=== PATIENT | male | born 1950 | race Caucasian/White ===

== ENCOUNTER 2017-02-09 05:12 | Inpatient (IN) | payer OTHER ==
[2017-02-09] VITALS (13 sets, daily range): BP systolic 117–157; BP diastolic 56–92; PULSE 83–108; RESP 13–30; TEMP 95.8–98.5; O2SAT 91–95
[~2017-02-09] VITALS: Ht 180.3 cm; Wt 52.0 kg
[~2017-02-09 05:12] MED LIST: PERC5TAB12 PO
[2017-02-09] MEDS ORDERED: SODIUM CHLORIDE 0.9% FLUSH 10 ML FLUSH IVF PRN ×2 (05:15→08:30)
[2017-02-09] MEDS ORDERED: methylPREDNISolone SOD SUCC 125 MG/2 ML VIAL IVP ONE (05:15)
--- NOTE | 2017-02-09 05:18 | PD ---
HPI Chief Complaint: Respiratory Distress Time Seen by Provider: 05:14 Travel History International Travel<30 days: No Contact w/Intl Traveler<30days: No Traveled to known affect area: No History of Present Illness HPI 66-year-old male presents to the emergency department by private transportation for complaint of 3 weeks of progressive worsening shortness of breath. Patient reports earlier in the week he was seen in urgent care and diagnosed with bronchitis and started on amoxicillin. Patient has had prior history of pneumonia 3 years ago. Patient denies known history of COPD or emphysema. Patient denies personal history of hypertension dyslipidemia CAD or CHF. Patient states shortness of breath has gotten markedly worse and now must sit upright to breathe and is concerned he may have broken ribs from forceful coughing over the past several days. No report of phlegm production or hemoptysis. No lower leg pain or swelling. Patient has also traveled several times between [place] and [place] in the past several months. Positive tobacco use. Positive productive cough of yellow sputum. 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) Social History Alcohol Use: Yes (3-4 week) Tobacco Use: Yes (ppd) Substance Use: No Allergies-Medications (Allergen,Severity, Reaction): Coded Allergies: No Known Allergies (Unverified , 02/09/17) Reported Meds & Prescriptions Reported Meds & Active Scripts Active No Active Prescriptions or Reported Medications Review of Systems Except as stated in HPI: all other systems reviewed are Neg General / Constitutional: Positive: Chills HENT: No: Congestion Cardiovascular: Positive: Chest Pain or Discomfort Respiratory: Positive: Cough, Shortness of Breath, Wheezing Gastrointestinal: No: Abdominal Pain Genitourinary: No: Flank Pain Musculoskeletal: No: Myalgias, Arthralgias Skin: No Rash Neurologic: Positive: Weakness, No: Dizziness, Syncope Psychiatric: No: Anxiety Hematologic/Lymphatic: No: Easy Bruising Physical Exam Narrative GENERAL: Well-developed well-nourished male in obvious respiratory distress SKIN: Warm and dry. HEAD: Normocephalic. EYES: No scleral icterus. No injection or drainage. NECK: Supple, trachea midline. No JVD or lymphadenopathy. CARDIOVASCULAR: Regular rate and rhythm without murmurs, gallops, or rubs. RESPIRATORY: Breath sounds equal bilaterally with bilateral expiratory wheezes. No accessory muscle use. GASTROINTESTINAL: Abdomen soft, non-tender, nondistended. MUSCULOSKELETAL: No cyanosis, or edema. Radial and dorsalis pedis pulses 2+ to palpation BACK: Nontender without obvious deformity. No CVA tenderness. Data Data Last Documented VS Vital Signs Date Time Temp Pulse Resp B/P Pulse Ox O2 Delivery O2 Flow Rate FiO2 02/09/17 07:35 92 18 135/66 94 Nasal Cannula 2 02/09/17 05:14 98.5 Orders Complete Blood Count With Diff (02/09/17 05:14) Basic Metabolic Panel (Bmp) (02/09/17 05:14) B-Type Natriuretic Peptide (02/09/17 05:14) Magnesium (Mg) (02/09/17 05:14) Ckmb (Isoenzyme) Profile (02/09/17 05:14) Troponin I (02/09/17 05:14) Iv Access Insert/Monitor (02/09/17 05:14) Electrocardiogram (02/09/17 05:14) Ecg Monitoring (02/09/17 05:14) Oximetry (02/09/17 05:14) Oxygen Administration (02/09/17 05:14) Chest, Single Ap (02/09/17 05:14) Sodium Chloride 0.9% Flush (Ns Flush) (02/09/17 05:15) Methylprednisolone So Succ Inj (Solumedr (02/09/17 05:15) Albuterol-Ipratropium Neb (Duoneb Neb) (02/09/17 05:15) Lactic Acid (02/09/17 05:15) Blood Culture (02/09/17 05:15) Act Partial Throm Time (Ptt) (02/09/17 05:28) Prothrombin Time / Inr (Pt) (02/09/17 05:28) D-Dimer (02/09/17 05:28) Ceftriaxone Inj (Rocephin Inj) (02/09/17 05:30) Azithromycin Inj (Zithromax Inj) (02/09/17 06:00) Albuterol-Ipratropium Neb (Duoneb Neb) (02/09/17 06:00) Sputum Culture And Gram Stain (02/09/17 05:48) Arterial Blood Gas (Abg) (02/09/17 ) Ct Pulmonary Angiogram (02/09/17 ) CKMB (02/09/17 05:17) CKMB% (02/09/17 05:17) Ct Brain W/O Iv Contrast(Rout) (02/09/17 ) Iohexol 350 Inj (Omnipaque 350 Inj) (02/09/17 07:09) Admit Order (Ed Use Only) (02/09/17 ) ^ Saline Lock (02/09/17 08:22) Resp Oxygen Anton C Titrat 1-4 L (02/09/17 ) Notify Dr: Other (02/09/17 08:22) Labs Laboratory Tests Test 02/09/17 02/09/17 05:17 06:04 White Blood Count 16.4 TH/MM3 Red Blood Count 4.94 MIL/MM3 Hemoglobin 15.9 GM/DL Hematocrit 46.2 % Mean Corpuscular Volume 93.6 FL Mean Corpuscular Hemoglobin 32.2 PG Mean Corpuscular Hemoglobin 34.4 % Concent Red Cell Distribution Width 13.5 % Platelet Count 249 TH/MM3 Mean Platelet Volume 7.5 FL Neutrophils (%) (Auto) 64.5 % Lymphocytes (%) (Auto) 18.4 % Monocytes (%) (Auto) 5.7 % Eosinophils (%) (Auto) 10.8 % Basophils (%) (Auto) 0.6 % Neutrophils # (Auto) 10.6 TH/MM3 Lymphocytes # (Auto) 3.0 TH/MM3 Monocytes # (Auto) 0.9 TH/MM3 Eosinophils # (Auto) 1.8 TH/MM3 Basophils # (Auto) 0.1 TH/MM3 CBC Comment DIFF FINAL Differential Comment Prothrombin Time 10.5 SEC Prothromb Time International 1.0 RATIO Ratio Activated Partial 25.9 SEC Thromboplast Time D-Dimer Quantitative (PE/DVT) 1.22 MG/L FEU Sodium Level 138 MEQ/L Potassium Level 4.4 MEQ/L Chloride Level 105 MEQ/L Carbon Dioxide Level 26.7 MEQ/L Anion Gap 6 MEQ/L Blood Urea Nitrogen 18 MG/DL Creatinine 1.15 MG/DL Estimat Glomerular Filtration 64 ML/MIN Rate Random Glucose 99 MG/DL Hemoglobin A1c 5.9 % Lactic Acid Level 1.6 mmol/L Calcium Level 8.8 MG/DL Magnesium Level 2.2 MG/DL Total Creatine Kinase 147 U/L Creatine Kinase MB 1.8 NG/ML Troponin I LESS THAN 0.02 NG/ML B-Type Natriuretic Peptide 22 PG/ML Triglycerides Level 117 MG/DL Cholesterol Level 180 MG/DL LDL Cholesterol 117 MG/DL HDL Cholesterol 40.0 MG/DL Cholesterol/HDL Ratio 4.50 RATIO Thyroid Stimulating Hormone 1.980 uIU/ML 3rd Gen Blood Gas Puncture Site LT RADIAL Blood Gas Patient Temperature 98.6 Blood Gas HCO3 24 mmol/L Blood Gas Base Excess -0.2 mmol/L Blood Gas Oxygen Saturation 91 % Arterial Blood pH 7.41 Arterial Blood Partial 39 mmHg Pressure CO2 Arterial Blood Partial 65 mmHG Pressure O2 Arterial Blood Oxygen Content 19.4 Vol % Arterial Blood 1.7 % Carboxyhemoglobin Arterial Blood Methemoglobin 0.6 % Blood Gas Hemoglobin 15.2 G/DL Oxygen Delivery Device NASAL CANNULA Blood Gas Liter Flow 3 L/M MDM Medical Decision Making Medical Screen Exam Complete: Yes Emergency Medical Condition: Yes Medical Record Reviewed: Yes Interpretation(s) EKG normal sinus rhythm rate 94 rare unifocal PVCs no acute ST elevation or injury pattern cxr: LLL infiltrate Last Impressions Chest X-Ray 02/09/17 0514 Signed Impressions: Service Date/Time: Thursday, February 09, 2017 05:12 - CONCLUSION: No acute disease. Daren Guerra MD Head CT 02/09/17 0000 Signed Impressions: Service Date/Time: Thursday, February 09, 2017 07:01 - CONCLUSION: Unremarkable study. Grace Doe MD CT Angiography 02/09/17 0000 Signed Impressions: Service Date/Time: Thursday, February 09, 2017 07:06 - CONCLUSION: Probable mucous plugging in the left main bronchus, follow up is suggested with noncontrast chest CT in 6-8 weeks and if this density persists may consider bronchoscopy. Grace Doe MD CBC & BMP Diagram 02/09/17 05:17 LA: 1.6, not elevated Differential Diagnosis Dyspnea, bronchitis, pneumonia, CHF, PE, ACS, sepsis Narrative Course Patient placed on gas line installer IV access obtained respiratory therapy contacted to administered DuoNeb updrafts 3 and Solu-Medrol 125 mg administered ; lactic acid and blood cultures obtained patient is already taking amoxicillin with worsening symptoms. At 6:14 AM patient continues to have expiratory wheezing to auscultation although somewhat improved identifies now that he actually had a syncopal episode 2 weeks ago due to shortness of breath and aggressive coughing. As well as ordering a CTA pulmonary angiogram due to elevated d-dimer recent long distance travel shortness of breath and room air O2 saturation of 90% will add CT brain noncontrast for evaluation of head injury status post syncope within the past 2 weeks. At [address] bony angiogram reveals no PE does show evidence of previous plugging of left mainstem bronchus with recommendation for follow-up CT; chest x-ray shows no obvious lobar infiltrate per reading radiologist; patient meets sepsis protocol per heart rate leukocytosis respiratory rate and sore throat infection pulmonary therefore will admit for sepsis infectious bronchitis and COPD exacerbation; call placed to have his service Critical Care Narrative Aggregate critical care time was 35 minutes. Time to perform other separately billable procedures was not included in the critical care time. My time did not include minutes spent treating any other patients simultaneously or on activities that did not directly contribute to the patient's treatment. The services I provided to this patient were to treat and/or prevent clinically significant deterioration that could result in: Respiratory failure, septic shock, I provided critical care services requiring my management, as noted below: Chart data review, documentation time, medication orders and management, vital sign assessments/reviewing monitor data, ordering and reviewing lab tests, ordering and interpreting/reviewing x-rays and diagnostic studies, care of the patient and discussion of the patient with the admitting physicians. Sepsis Criteria SIRS Criteria (2 or more): Heart rate over 90, RR > 20 or PaCO2 < 32, WBC > 14318, < 4000 or > 10% bands Sepsis Criteria (SIRS+source): Infect source susp/known (lung) Physician Communication Physician Communication call placed to [facility] service ---accepted by Dr Taylor Diagnosis Primary Impression: Sepsis Qualified Code: A41.9 - Sepsis, due to unspecified organism Additional Impressions: Bronchitis COPD exacerbation Admitting Information Admitting Physician Requests: Admit Scripts No Active Prescriptions or Reported Meds Shanthi Velasquez MD Feb 09, 2017 05:18
[2017-02-09] MEDS: RESP: ALBUTEROL 2.5 MG/IPRATROPIUM 0.5 MG NEB (SCH) INH ×2 (05:24→05:25)
[2017-02-09] MEDS ORDERED: cefTRIAXone INJ 1,000 MG in SODIUM CHLORIDE 0.9% INJ 100 ML IV ONE (05:30)
[2017-02-09 05:44] LABS: AUTOMATED NEUTROPHIL # 10.6 TH/MM3 (1.8-7.7); BASOPHIL # 0.1 TH/MM3 (0-0.2); BASOPHIL % 0.6 % (0.0-2.0); EOSINOPHIL # 1.8 TH/MM3 (0-0.4); EOSINOPHIL % 10.8 % (0.0-4.0); HEMATOCRIT 46.2 % (39.0-51.0); HEMO FLAGS DIFF FINAL; LYMPH % 18.4 % (9.0-44.0); MEAN CELL VOLUME 93.6 FL (80.0-100.0); MEAN CORPUSCULAR HEMOGLOBIN 32.2 PG (27.0-34.0); MEAN CORPUSCULAR HGB CONC 34.4 % (32.0-36.0); MONO % 5.7 % (0.0-8.0); NEUT % 64.5 % (16.0-70.0); PLATELET COUNT 249 TH/MM3 (150-450); RED BLOOD COUNT 4.94 MIL/MM3 (4.50-5.90); RED CELL DISTRIBUTION WIDTH 13.5 % (11.6-17.2); WHITE BLOOD COUNT 16.4 TH/MM3 (4.0-11.0)
[2017-02-09 05:53] LABS: APTT (PATIENT) 25.9 SEC (24.3-30.1); PROTHROMBIN TIME - PATIENT 10.5 SEC (9.8-11.6)
[2017-02-09] MEDS ORDERED: AZITHROMYCIN INJ 500 MG in SODIUM CHLOR 0.9% 250 ML INJ 250 ML IV ONE (06:00)
[2017-02-09] MEDS ORDERED: RESP: ALBUTEROL 2.5 MG/IPRATROPIUM 0.5 MG NEB (SCH) NEB ONE (06:00)
[2017-02-09 06:04] LABS: CREATINE KINASE 147 U/L (39-308)
[2017-02-09 06:12] LABS: BLOOD GAS BASE EXCESS -0.2 mmol/L (-2-2); BLOOD GAS CARBOXYHEMOGLOBIN 1.7 % (0-4); BLOOD GAS HCO3 24 mmol/L (22-26); BLOOD GAS METHEMOGLOBIN 0.6 % (0-2); BLOOD GAS O2 HGB SATURATION 91 % (90-100); BLOOD GAS OXYGEN CONTENT 19.4 Vol % (12.0-20.0); BLOOD GAS PCO2 39 mmHg (38-42); BLOOD GAS PO2 65 mmHG (61-120); BLOOD GAS TOTAL HGB 15.2 G/DL (12.0-16.0); CRITICAL VALUE NO; TEMP CORR TO 98.6
[2017-02-09 06:13] LABS: DRAW SITE LT RADIAL; LITER FLOW 3 L/M; NUMBER OF ARTERIAL PUNCTURES 1; OXYGEN DEVICE NASAL CANNULA; STAT YES; ULNAR PULSE PRESENT
[2017-02-09 06:23] LABS: CKMB 1.8 NG/ML (0.5-3.6)
[2017-02-09 06:25] LABS: ANION GAP 6 MEQ/L (5-15); BICARBONATE 26.7 MEQ/L (21.0-32.0); BLOOD UREA NITROGEN 18 MG/DL (7-18); CHLORIDE 105 MEQ/L (98-107); GLOMERULAR FILTRATION RATE 64 ML/MIN (>89); MAGNESIUM 2.2 MG/DL (1.5-2.5); POTASSIUM 4.4 MEQ/L (3.5-5.1); SODIUM (NA) 138 MEQ/L (136-145)
--- NOTE | 2017-02-09 06:27 | RADRPT ---
EXAM DATE/TIME: 02/09/2017 05:12 [facility] COMPARISON: No previous studies available for comparison. INDICATIONS : Cough and shortness of breath, recent bronchitis MEDICAL HISTORY : None. SURGICAL HISTORY : None. ENCOUNTER: Initial ACUITY: 1 day PAIN SCORE: 7/10 LOCATION: Bilateral chest FINDINGS: A single view of the chest demonstrates the lungs to be symmetrically aerated without evidence of mas s, infiltrate or effusion. The cardiomediastinal contours are unremarkable. Osseous structures are intact. CONCLUSION: No acute disease. Daren Guerra MD on February 09, 2017 at 6:26 Board Certified Radiologist. This report was verified electronically.
[2017-02-09] MEDS ORDERED: IOHEXOL 350 MG/ML 10 ML VIAL (for RAD DIAG) IV ONE (07:09)
--- NOTE | 2017-02-09 07:29 | RADRPT ---
EXAM DATE/TIME: 02/09/2017 07:01 [facility] COMPARISON: No previous studies available for comparison. INDICATIONS : Syncopal episode. RADIATION DOSE: 66.94 CTDIvol (mGy) MEDICAL HISTORY : None SURGICAL HISTORY : None. ENCOUNTER: Initial ACUITY: 1 day PAIN SCALE: 0/10 LOCATION: cranial TECHNIQUE: Multiple contiguous axial images were obtained of the head. Using automated exposure control and adj ustment of the mA and/or kV according to patient size, radiation dose was kept as low as reasonably a chievable to obtain optimal diagnostic quality images. DICOM format image data is available electro nically for review and comparison. FINDINGS: There is no evidence for intracranial hemorrhage, mass effect, mass lesions, edema, or extra-axial fl uid collections. The visualized bony structures appear intact. The ventricles are normal size for t he patient's age. There are no signs of acute infarction for technique. CONCLUSION: Unremarkable study. Grace Doe MD on February 09, 2017 at 7:26 Board Certified Radiologist. This report was verified electronically.
--- NOTE | 2017-02-09 07:36 | RADRPT ---
EXAM DATE/TIME: 02/09/2017 07:06 [facility] COMPARISON: No previous studies available for comparison. INDICATIONS : Dyspnea following recent travel. IV CONTRAST: 72 cc Omnipaque 350 (iohexol) IV RADIATION DOSE: 16.85 CTDIvol (mGy) MEDICAL HISTORY : None SURGICAL HISTORY : ortho ENCOUNTER: Initial ACUITY: 3 weeks PAIN SCALE: 0/10 LOCATION: chest TECHNIQUE: Volumetric scanning of the chest was performed using a pulmonary embolism protocol MIP images were re constructed. Using automated exposure control and adjustment of the mA and/or kV according to patien t size, radiation dose was kept as low as reasonably achievable to obtain optimal diagnostic quality images. DICOM format image data is available electronically for review and comparison. Follow-up recommendations for incidentally detected pulmonary nodules are based at a minimum on nodul e size and patient risk factors according to Fleischner Society Guidelines. FINDINGS: The lungs are clear without infiltrate, nodule, or mass except for slight scarring in lingula. There is no pleural effusion. No appreciable pathological adenopathy is seen within the mediastinum. Ther e is a density in the left main bronchus partially extending into the left upper lobe bronchus measur es 1.3 cm in size may be mucous plug, however endobronchial mass is difficult to exclude. There is no evidence for PE for technique. The liver is fatty without focal lesions or technique. CONCLUSION: Probable mucous plugging in the left main bronchus, follow up is suggested with nonco ntrast chest CT in 6-8 weeks and if this density persists may consider bronchoscopyMicaela Doe MD on February 09, 2017 at 7:32 Board Certified Radiologist. This report was verified electronically.
[2017-02-09] MEDS ORDERED: ACETAMINOPHEN 325 MG TAB PO PRN (08:30)
[2017-02-09] MEDS ORDERED: SODIUM CHLORIDE 0.9% FLUSH 10 ML FLUSH IV FLUSH PRN (08:30)
[2017-02-09] MEDS ORDERED: LACTULOSE SYRUP 20 GM/30 ML CUP PO PRN (08:30)
[2017-02-09] MEDS ORDERED: ONDANSETRON HCL 4 MG/2 ML VIAL IVP PRN (08:30)
[2017-02-09] MEDS ORDERED: MAGNESIUM HYDROXIDE SUSP 30 ML CUP PO PRN (08:30)
[2017-02-09] MEDS ORDERED: NALOXONE HCL 0.4 MG/ML AMP IV PRN (08:30)
[2017-02-09] MEDS ORDERED: SENNOSIDES 8.6 MG TAB PO PRN (08:30)
[2017-02-09] MEDS ORDERED: BISACODYL 10 MG SUPP RECTAL PRN (08:30)
[2017-02-09] MEDS: SODIUM CHLORIDE 0.9% FLUSH 10 ML FLUSH IV FLUSH SCH ×2 (09:00→21:00)
[2017-02-09] MEDS ORDERED: SODIUM CHLORIDE 0.9% FLUSH 10 ML FLUSH IV FLUSH SCH (09:00)
[2017-02-09] MEDS: DOCUSATE SODIUM 50 MG/SENNA 8.6 MG TAB PO SCH ×2 (09:00→21:34)
[2017-02-09 09:02] LABS: LDL CHOLESTEROL 117 MG/DL (0-99)
[2017-02-09] MEDS: SODIUM CHLOR 0.9% 1000 ML INJ 1,000 ML IV SCH ×2 (09:22→21:31)
[2017-02-09] MEDS: CEFEPIME INJ 2,000 MG in SODIUM CHLORIDE 0.9% INJ 100 ML IV SCH ×2 (09:22→21:41)
[2017-02-09] MEDS: guaiFENesin E.R. 600 MG TAB PO SCH ×2 (09:23→21:33)
[2017-02-09] MEDS: ENOXAPARIN SODIUM 40 MG/0.4 ML SYRINGE SQ SCH (09:24)
[2017-02-09 09:43] LABS: BLOOD, URINE NEG (NEG); COMMENT (UR) CULT NOT INDICATED; CULTURE IF INDICATED CULT NOT INDICATED; GLUCOSE,URINE NEG (NEG); KETONE, URINE NEG (NEG); MUCUS URINE FEW /lpf (OCC); NITRITE,URINE NEG (NEG); PH, URINE 5.5 (5.0-8.5); URINE COLOR YELLOW (YELLW/STRAW)
[2017-02-09] MEDS: methylPREDNISolone SOD SUCC 40 MG/1 ML VIAL IV PUSH SCH ×3 (10:22→21:35)
[2017-02-09] MEDS ORDERED: NICOTINE 21 MG/24 HR PATCH T-DERMAL PRN (11:30)
[2017-02-09] MEDS ORDERED: BENZONATATE 100 MG CAP PO PRN (11:30)
[2017-02-09] MEDS ORDERED: ACETAMINOPHEN/HYDROcodone 325 MG/5 MG TAB PO PRN (11:30)
[2017-02-09] MEDS ORDERED: IBUPROFEN 400 MG TAB PO PRN (11:30)
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
[2017-02-09] MEDS: RESP: ALBUTEROL 2.5 MG/IPRATROPIUM 0.5 MG NEB (SCH) NEB ×3 (11:41→21:40)
[2017-02-09 12:17] LABS: HEMOGLOBIN A1a 1.5 %; HEMOGLOBIN A1b 1.6 %; HEMOGLOBIN Ao 85.1 %; HEMOGLOBIN LA1C 1.8 %; HEMOGLOBIN P3 3.6 %
[2017-02-09] MEDS: ACETAMINOPHEN/HYDROcodone 325 MG/7.5 MG TAB PO PRN (12:40)
[2017-02-10] VITALS (7 sets, daily range): BP systolic 127–171; BP diastolic 68–95; PULSE 65–109; RESP 18–20; TEMP 96.3–97.2; O2SAT 90–96
[2017-02-10] MEDS: RESP: ALBUTEROL 2.5 MG/IPRATROPIUM 0.5 MG NEB (SCH) NEB ×6 (00:34→20:00)
[2017-02-10] MEDS: methylPREDNISolone SOD SUCC 40 MG/1 ML VIAL IV PUSH SCH ×4 (05:01→22:51)
[2017-02-10] MEDS: SODIUM CHLOR 0.9% 1000 ML INJ 1,000 ML IV SCH ×2 (05:16→12:40)
[2017-02-10] MEDS ORDERED: AZITHROMYCIN INJ 500 MG in SODIUM CHLOR 0.9% 250 ML INJ 250 ML IV SCH (06:00)
[2017-02-10 07:18] LABS: AUTOMATED NEUTROPHIL # 26.9 TH/MM3 (1.8-7.7); BASOPHIL % 0.1 % (0.0-2.0); HEMATOCRIT 38.1 % (39.0-51.0); HEMO FLAGS DIFF FINAL; LYMPH % 3.4 % (9.0-44.0); MEAN CELL VOLUME 93.5 FL (80.0-100.0); MEAN CORPUSCULAR HEMOGLOBIN 31.3 PG (27.0-34.0); MEAN CORPUSCULAR HGB CONC 33.5 % (32.0-36.0); MONO % 2.8 % (0.0-8.0); NEUT % 93.7 % (16.0-70.0); PLATELET COUNT 227 TH/MM3 (150-450); RED BLOOD COUNT 4.07 MIL/MM3 (4.50-5.90); RED CELL DISTRIBUTION WIDTH 13.2 % (11.6-17.2); WHITE BLOOD COUNT 28.7 TH/MM3 (4.0-11.0)
[2017-02-10 07:47] LABS: BICARBONATE 23.3 MEQ/L (21.0-32.0)
--- NOTE | 2017-02-10 08:30 | HHI.PR ---
Subjective Remarks 66-year-old male with past medical history of arthritis, tobacco use, and recent bronchitis, presents with a 3 week history of worsening cough and shortness of breath. The patient reports he started with nonproductive cough and congestion 3 weeks ago, saw urgent care 2 weeks ago, prescribed amoxicillin [id number] for bronchitis, completed treatment yesterday. He states he continues to worsen. He reports now productive cough with yellow-green sputum. He reports intractable forceful coughing and has now developed severe bilateral rib cage pains. at bedside reports he has been coughing so hard that he turns bright red in the face and has passed out, hit his nose/forehead on the wall. He denies fevers but reports diaphoresis and night sweats. He has been taking Tylenol PM and Nyquil to help him sleep. He reports shortness of breath while at rest, worse with any exertion, and states his breathing is limited secondary to the rib cage pain. Denies any orthopnea, weight gain, or lower extremity edema. Denies any cardiac history. He has been traveling recently for work, returned from [place] on January 18. He reports working a lot recently and has not been able to rest in order to fight the infection. He feels very warn down and fatigued. He does continue to smoke tobacco 1 PPD since he was a teenager, but never diagnosed with COPD/emphysema. The patient denies any other medical complaints including no chest pain, palpitations, nausea/vomiting, abdominal pain, or urinary complaints. 02/10: Seen in his bedroom in the presence of his , also discussed with nurse Miss Hebert, the patient has been coughing until he passed out yesterday night, no nausea, vomit or diarrhea, destination specialist consult placed and because of probable Mucous Plug he was left NPO for probable Bronchoscopy if recommended by Specialist. continue present care. Objective Vital Signs Date Time Temp Pulse Resp B/P Pulse Ox O2 Delivery O2 Flow Rate FiO2 02/10/17 04:35 97.2 109 18 143/69 90 02/10/17 00:00 97.1 98 18 151/70 90 02/09/17 21:41 92 Nasal Cannula 2.00 02/09/17 21:35 108 02/09/17 20:00 97.7 100 18 124/58 91 02/09/17 20:00 97.7 100 18 124/58 91 02/09/17 16:00 96.9 87 18 117/56 93 02/09/17 11:41 93 Nasal Cannula 1.00 02/09/17 11:00 95.8 83 17 137/69 95 02/09/17 10:59 90 18 149/70 95 Nasal Cannula 2 02/09/17 09:02 94 13 137/62 94 Nasal Cannula 2 I/O 02/09/17 02/09/17 02/09/17 02/10/17 02/10/17 02/10/17 07:00 15:00 23:00 07:00 15:00 23:00 Intake Total 1817 ml Output Total 900 ml 975 ml 800 ml Balance -900 ml -975 ml 1017 ml Intake IV Total 1817 ml Output Urine Total 900 ml 975 ml 800 ml # Voids 2 Result Diagram: 02/10/17 0600 02/10/17 0600 Imaging Last Impressions Chest X-Ray 02/09/17 0514 Signed Impressions: Service Date/Time: Thursday, February 09, 2017 05:12 - CONCLUSION: No acute disease. Daren Guerra MD Head CT 02/09/17 0000 Signed Impressions: Service Date/Time: Thursday, February 09, 2017 07:01 - CONCLUSION: Unremarkable study. Grace Doe MD CT Angiography 02/09/17 0000 Signed Impressions: Service Date/Time: Thursday, February 09, 2017 07:06 - CONCLUSION: Probable mucous plugging in the left main bronchus, follow up is suggested with noncontrast chest CT in 6-8 weeks and if this density persists may consider bronchoscopy. Grace Doe MD Procedures None Other Results Laboratory Tests Test 02/09/17 02/09/17 02/09/17 02/10/17 05:17 06:04 09:08 06:00 Prothrombin Time 10.5 SEC Prothromb Time International 1.0 RATIO Ratio Activated Partial 25.9 SEC Thromboplast Time D-Dimer Quantitative (PE/DVT) 1.22 MG/L FEU Hemoglobin A1c 5.9 % Lactic Acid Level 1.6 mmol/L Magnesium Level 2.2 MG/DL Total Creatine Kinase 147 U/L Creatine Kinase MB 1.8 NG/ML Troponin I LESS THAN 0.02 NG/ML B-Type Natriuretic Peptide 22 PG/ML Triglycerides Level 117 MG/DL Cholesterol Level 180 MG/DL LDL Cholesterol 117 MG/DL HDL Cholesterol 40.0 MG/DL Cholesterol/HDL Ratio 4.50 RATIO Thyroid Stimulating Hormone 1.980 uIU/ML 3rd Gen Blood Gas Puncture Site LT RADIAL Blood Gas Patient Temperature 98.6 Blood Gas HCO3 24 mmol/L Blood Gas Base Excess -0.2 mmol/L Blood Gas Oxygen Saturation 91 % Arterial Blood pH 7.41 Arterial Blood Partial 39 mmHg Pressure CO2 Arterial Blood Partial 65 mmHG Pressure O2 Arterial Blood Oxygen Content 19.4 Vol % Arterial Blood 1.7 % Carboxyhemoglobin Arterial Blood Methemoglobin 0.6 % Blood Gas Hemoglobin 15.2 G/DL Oxygen Delivery Device NASAL CANNULA Blood Gas Liter Flow 3 L/M Urine Color YELLOW Urine Turbidity CLEAR Urine pH 5.5 Urine Specific [place] 1.031 Urine Protein TRACE mg/dL Urine Glucose (UA) NEG mg/dL Urine Ketones NEG mg/dL Urine Occult Blood NEG Urine Nitrite NEG Urine Bilirubin NEG Urine Urobilinogen LESS THAN 2.0 MG/DL Urine Leukocyte Esterase NEG Urine RBC LESS THAN 1 /hpf Urine WBC 1 /hpf Urine Mucus FEW /lpf Microscopic Urinalysis Comment CULT NOT INDICATED White Blood Count 28.7 TH/MM3 Red Blood Count 4.07 MIL/MM3 Hemoglobin 12.8 GM/DL Hematocrit 38.1 % Mean Corpuscular Volume 93.5 FL Mean Corpuscular Hemoglobin 31.3 PG Mean Corpuscular Hemoglobin 33.5 % Concent Red Cell Distribution Width 13.2 % Platelet Count 227 TH/MM3 Mean Platelet Volume 7.9 FL Neutrophils (%) (Auto) 93.7 % Lymphocytes (%) (Auto) 3.4 % Monocytes (%) (Auto) 2.8 % Eosinophils (%) (Auto) 0.0 % Basophils (%) (Auto) 0.1 % Neutrophils # (Auto) 26.9 TH/MM3 Lymphocytes # (Auto) 1.0 TH/MM3 Monocytes # (Auto) 0.8 TH/MM3 Eosinophils # (Auto) 0.0 TH/MM3 Basophils # (Auto) 0.0 TH/MM3 CBC Comment DIFF FINAL Differential Comment Sodium Level 142 MEQ/L Potassium Level 4.0 MEQ/L Chloride Level 108 MEQ/L Carbon Dioxide Level 23.3 MEQ/L Anion Gap 11 MEQ/L Blood Urea Nitrogen 16 MG/DL Creatinine 0.95 MG/DL Estimat Glomerular Filtration 80 ML/MIN Rate Random Glucose 117 MG/DL Calcium Level 9.2 MG/DL Objective Remarks GENERAL: Well-nourished, well-developed pleasant male patient in NAD. SKIN: Warm and dry. No rash. Slightly diaphoretic. HEAD: Normocephalic. Atraumatic. EYES: Pupils equal and round. No scleral icterus. No injection or drainage. ENT: No nasal bleeding or discharge. Mucous membranes pink and moist. NECK: Supple. Trachea midline. CARDIOVASCULAR: Regular rate and rhythm. S1, S2 noted. No murmur appreciated. RESPIRATORY: Decreased breath sound bilateral, increased AP diameter of thorax, no wheezing or crackles. GASTROINTESTINAL: Abdomen soft, non-tender, nondistended. Normoactive bowel sounds x4. MUSCULOSKELETAL: No obvious deformities. Extremities without clubbing, cyanosis , or edema. NEUROLOGICAL: Awake and alert. No obvious cranial nerve deficits. Motor grossly within normal limits. Normal speech. PSYCHIATRIC: Appropriate mood and affect; insight and judgment normal. Medications and IVs Current Medications Medications (Trade) Dose Ordered Sig/Laly Route Start Time Stop Time Status Last Admin (NS 1000 ml Inj) 1,000 ml @ 100 mls/hr Q10H IV 02/09/17 08:24 02/10/17 05:16 (NS Flush) 2 ml UNSCH PRN IV FLUSH 02/09/17 08:30 (NS Flush) 2 ml BID IV FLUSH 02/09/17 09:00 (Tylenol) 650 mg Q4H PRN PO 02/09/17 08:30 (Zofran Inj) 4 mg Q6H PRN IVP 02/09/17 08:30 (Lovenox Inj) 40 mg Q24H SQ 02/09/17 10:00 02/09/17 09:24 (Narcan Inj) 0.4 mg UNSCH PRN IV 02/09/17 08:30 (Breana-Colace) 1 tab BID PO 02/09/17 09:00 02/09/17 21:34 (Milk Of Magnesia Liq) 30 ml Q12H PRN PO 02/09/17 08:30 (Senokot) 17.2 mg Q12H PRN PO 02/09/17 08:30 (Dulcolax Supp) 10 mg DAILY PRN RECTAL 02/09/17 08:30 Lactulose 30 ml 30 ml DAILY PRN PO 02/09/17 08:30 Cefepime HCl 2000 mg/Sodium Chloride 100 ml @ 200 mls/hr Q12H IV 02/09/17 10:00 02/09/17 21:41 (Zithromax Inj/ NS 250 ml Inj) 250 ml @ 250 mls/hr Q24H IV 02/10/17 06:00 02/10/17 05:04 (Mucinex Er) 600 mg BID PO 02/09/17 10:00 02/09/17 21:33 (SoluMEDROL INJ) 40 mg Q6H IV PUSH 02/09/17 11:00 02/10/17 05:01 (Tessalon) 200 mg Q8H PRN PO 02/09/17 11:30 (Motrin) 400 mg Q6H PRN PO 02/09/17 11:30 ([place] 5-325 Mg) 1 tab Q4H PRN PO 02/09/17 11:30 02/09/17 21:35 ([place] 7.5-325 Mg) 1 tab Q4H PRN PO 02/09/17 11:30 02/09/17 12:40 (Habitrol 21 Mg Patch.24 Hr) 1 patch DAILY PRN T-DERMAL 02/09/17 11:30 A/P Assessment and Plan 66-year-old male with past medical history of arthritis, tobacco use, and recent bronchitis, presents with a 3 week history of worsening cough and shortness of breath. Sepsis with Bronchitis, suspected early Community Acquired Pneumonia: Failed Outpatient Treatment with 10day course of Amoxicillin. Meets sepsis criteria with WBC 16.4K, tachycardia HR 102, tachypnea RR 30. Lactic acid 1.6. ABG reviewed and unremarkable. UA negative. CXR images reviewed, no acute findings. D-dimer elevated 1.22. CT-PA images reviewed, shows mucous plug left main bronchus, recommends f/up with noncontrast CT in 6-8 weeks; if density persists , may consider bronchoscopy. Leukocytosis worsening probable related to Steroid use IV versus Infectious basal pathology, asked for new Lactic Acid level. -Continue antibiotics with IV Cefepime and Azithromycin -sputum culture, blood cultures negative in 24 hours. , urine legionella/ pneumococcal antigen Negative. -Supportive treatment with IVF, Mucinex bid, Tessalon prn cough, Ibuprofen and [place] prn pain -Continue Duoneb q4h scheduled. -Continue steroids with IV Solu-Medrol 40mg q6h -Give incentive spirometry, acapella, and O2 as needed -Not improving consult placed for destination specialist left NPO for probable procedure may need Bronchoscopy due to Mucous Plug. Evident COPD/Emphysema exacerbation. with increased anteroposterior diameter of the thorax, secondary to Severe tobacco dependence he uses an inhaler Pro-air without improvement. continue bronchodilator, Mucolytic and Incentive spirometry, Steroids. Tobacco Use: smokes 1 PPD for ~50years. -Counseled on cessation -will provide nicotine patch prn DVT Prophylaxis: Lovenox Code Status Full Code Discussed Condition With Discussed with Patient and his in the room, all questions answered to the best of my abilities Discussed with nurse Miss Hebert. Discharge Planning Not yet cleared for discharge. Hernandez Gaviria MD Feb 10, 2017 08:30
[2017-02-10] MEDS: SODIUM CHLORIDE 0.9% FLUSH 10 ML FLUSH IV FLUSH SCH ×2 (09:00→22:52)
[2017-02-10] MEDS: ENOXAPARIN SODIUM 40 MG/0.4 ML SYRINGE SQ SCH (09:19)
[2017-02-10] MEDS: CEFEPIME INJ 2,000 MG in SODIUM CHLORIDE 0.9% INJ 100 ML IV SCH ×2 (09:19→22:51)
[2017-02-10] MEDS: guaiFENesin E.R. 600 MG TAB PO SCH ×2 (09:20→22:51)
[2017-02-10] MEDS: DOCUSATE SODIUM 50 MG/SENNA 8.6 MG TAB PO SCH ×2 (09:20→21:00)
--- NOTE | 2017-02-10 12:15 | EKG ---
Date Performed: 02/10/2017 Time Performed: 11:32:27 PTAGE: 66 years EKG: Sinus rhythm NORMAL ECG PREVIOUS TRACING : 02/09/2017 05.19 No significant change from previous tracing noted. DOCTOR: Liam Mora Interpretating Date/Time 02/10/2017 12:12:40
[2017-02-10 12:30] LABS: BLOOD GAS BASE EXCESS 0.8 mmol/L (-2-2); BLOOD GAS CARBOXYHEMOGLOBIN 1.2 % (0-4); BLOOD GAS HCO3 24 mmol/L (22-26); BLOOD GAS METHEMOGLOBIN 0.8 % (0-2); BLOOD GAS O2 HGB SATURATION 90 % (90-100); BLOOD GAS OXYGEN CONTENT 17.3 Vol % (12.0-20.0); BLOOD GAS PCO2 33 mmHg (38-42); BLOOD GAS PO2 61 mmHg (61-120); BLOOD GAS TOTAL HGB 13.8 G/DL (12.0-16.0); CRITICAL VALUE NO; DRAW SITE RT RADIAL; FIO2 21 %; NUMBER OF ARTERIAL PUNCTURES 1; OXYGEN DEVICE ROOM AIR; STAT YES; TEMP CORR TO 98.6; ULNAR PULSE PRESENT
[2017-02-10] MEDS: LEVOFLOXACIN 750 MG PREMIX INJ 150 ML IV SCH (12:40)
--- NOTE | 2017-02-10 14:01 | EKG ---
Date Performed: 02/09/2017 Time Performed: 05:19:02 PTAGE: 66 years EKG: Sinus rhythm WITH OCCASIONAL VENTRICULAR PREMATURE COMPLEXES BORDERLINE ECG PREVIOUS TRACING : 01/03/2014 20.05 Compared to previous tracing, PVCs are now present. DOCTOR: Chin Waterman Interpretating Date/Time 02/10/2017 13:59:33
[2017-02-11] VITALS (7 sets, daily range): BP systolic 137–180; BP diastolic 65–81; PULSE 73–93; RESP 18–21; TEMP 95.7–96.7; O2SAT 90–95
[2017-02-11] MEDS: SODIUM CHLOR 0.9% 1000 ML INJ 1,000 ML IV SCH ×2 (00:24→09:41)
[2017-02-11] MEDS: RESP: ALBUTEROL 2.5 MG/IPRATROPIUM 0.5 MG NEB (SCH) NEB ×6 (04:00→20:00)
--- NOTE | 2017-02-11 06:08 | MB ---
cc: SOPHIA DAMON DATE OF CONSULTATION 02/10/[address] Taylor REASON FOR CONSULTATION Evaluation for COPD and pneumonia. HISTORY OF PRESENT ILLNESS Mr. Gil is a pleasant 66-year-old white male with no significant past medical problems. He has not seen any physician. He moved to this area about four years ago and he says that he is getting his medical care mostly in the emergency room. He works as for [employer]. Recent trips to [place] where there was extreme variation of temperature and he got wiped out. For the last three weeks he is feeling very short of breath and not feeling well, but this weekend he started having cough and sputum production, has some fever. He did not have nausea or vomiting, no chills. Because of worsening of symptoms he came to the emergency room. He had a workup done - WBC count was 28.7, hemoglobin 12.8, hematocrit 38.1, MCV 96, platelet count 227. Sodium 142, potassium 4.0, chloride 108, CO2 23, BUN 16 creatinine 0.95, lactic acid 6.3. Blood gas - pH 7.48, pCO2 33, pO2 61, bicarb 24, saturation 90% on room air. He had a CT of the chest done, does not show any pulmonary embolism. Shows probable mucus plugging in the left mainstem bronchus. His blood cultures so far are negative. Legionella antigen is negative. Pneumococcal antigen is negative. PAST MEDICAL HISTORY Significant for - 1. 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 2. History of arthritis. 3. History of thumb repair and elbow repair. MEDICATIONS AT HOME He does not take any medication on a regular basis. Currently he is taking - 1. Levaquin 750 mg daily. 2. Albuterol/Atrovent nebulizer treatment. 3. Tessalon 200 mg every 8 hours. 4. Sweet 5/325 one tablet every 4 hours as needed. 5. Solu-Medrol 40 mg q.6 hours. 6. Lovenox 40 mg a day. 7. Cefepime 2 grams q. 12 hours. ALLERGIES No known drug allergies. SOCIAL HISTORY He is has a long history of smoking one pack per day, currently a few cigarettes per day. Drinks socially. He works for [employer]. FAMILY HISTORY He is for 8 years history; this is his second marriage. He has three children. REVIEW OF SYSTEMS Normally he is up and active and has been working very hard. He says he was working 7 days a week, 12 hour shifts which makes him extremely tired. Does not have any malignancy. No DVT, pulmonary embolism. No seizure, stroke or epilepsy. PHYSICAL EXAMINATION GENERAL: A well-built, well-nourished male, not in acute distress. VITAL SIGNS: Blood pressure 127/95, heart rate 104, respirations 18, temperature 96.9. HEENT EXAMINATION: Pupils are equal and reactive to light. Oral mucosa, nasal mucosa normal. NECK: JVP not raised. CHEST: He has expiratory rhonchi. CVS: S1 and S2 normal. ABDOMEN: Soft, nontender, nondistended. Bowel sounds are present. EXTREMITIES: No edema. [employer]: Alert and oriented x 3. No focal deficit. IMPRESSION 1. COPD exacerbation. 2. Possible mucous plugging in the left upper lobe. He is making good mucous now. 3. Nicotine use. 4. Leukocytosis. PLAN 1. I have discussed with the patient and his . I advised him that he will need a repeat CT scan of the chest in four to six weeks to make sure the mucous plugging is resolved. If not, he will need bronchoscopy. 2. We will continue present antibiotic, check his cultures. 3. Give him aerosol treatment. 4. IV Solu-Medrol. 5. Supplement his oxygen. Further treatment will depend on his course in the hospital. Thank you, Dr. Taylor, for this consult. MD JAKOB Ramirez/ZAY /5:07 PM /5:53 AM
[2017-02-11] MEDS: methylPREDNISolone SOD SUCC 40 MG/1 ML VIAL IV PUSH SCH ×4 (06:40→22:25)
[2017-02-11 07:44] LABS: AUTOMATED NEUTROPHIL # 30.2 TH/MM3 (1.8-7.7); BASOPHIL % 0.1 % (0.0-2.0); HEMATOCRIT 40.4 % (39.0-51.0); LYMPH % 2.4 % (9.0-44.0); LYMPHOCYTE # 0.8 TH/MM3 (1.0-4.8); MEAN CELL VOLUME 92.5 FL (80.0-100.0); MEAN CORPUSCULAR HEMOGLOBIN 32.1 PG (27.0-34.0); MEAN CORPUSCULAR HGB CONC 34.7 % (32.0-36.0); MONO % 2.8 % (0.0-8.0); NEUT % 94.7 % (16.0-70.0); PLATELET COUNT 261 TH/MM3 (150-450); RED BLOOD COUNT 4.37 MIL/MM3 (4.50-5.90); RED CELL DISTRIBUTION WIDTH 13.2 % (11.6-17.2); WHITE BLOOD COUNT 31.9 TH/MM3 (4.0-11.0)
[2017-02-11 07:53] LABS: HEMO FLAGS AUTO DIFF
[2017-02-11 08:13] LABS: BICARBONATE 25.7 MEQ/L (21.0-32.0); POTASSIUM 4.1 MEQ/L (3.5-5.1)
[2017-02-11] MEDS: DOCUSATE SODIUM 50 MG/SENNA 8.6 MG TAB PO SCH ×2 (08:19→21:00)
[2017-02-11] MEDS: CEFEPIME INJ 2,000 MG in SODIUM CHLORIDE 0.9% INJ 100 ML IV SCH ×2 (08:19→22:26)
[2017-02-11] MEDS: guaiFENesin E.R. 600 MG TAB PO SCH ×2 (08:19→22:26)
[2017-02-11] MEDS: SODIUM CHLORIDE 0.9% FLUSH 10 ML FLUSH IV FLUSH SCH ×2 (08:20→22:26)
[2017-02-11 09:05] LABS: NEUTROPHIL # MANUAL DIFF 29.7 TH/MM3 (1.8-7.7); POLYS (SEG NEUTROPHILS) 93 % (16-70); WBC DIFF SAMPLE 100
[2017-02-11 09:06] LABS: PLATELET ESTIMATE SMEAR NORMAL (NORMAL); PLATELET MORPHOLOGY NORMAL (NORMAL); SCAN/DIFF FINAL DIFF MANUAL
[2017-02-11] MEDS: ENOXAPARIN SODIUM 40 MG/0.4 ML SYRINGE SQ SCH (09:40)
[2017-02-11] MEDS: ACETAMINOPHEN/HYDROcodone 325 MG/7.5 MG TAB PO PRN ×2 (09:41→17:00)
[2017-02-11] MEDS: LEVOFLOXACIN 750 MG PREMIX INJ 150 ML IV SCH (12:00)
--- NOTE | 2017-02-11 12:09 | HHI.PR ---
Subjective Remarks 66-year-old male with past medical history of arthritis, tobacco use, and recent bronchitis, presents with a 3 week history of worsening cough and shortness of breath. The patient reports he started with nonproductive cough and congestion 3 weeks ago, saw urgent care 2 weeks ago, prescribed amoxicillin [id number] for bronchitis, completed treatment yesterday. He states he continues to worsen. He reports now productive cough with yellow-green sputum. He reports intractable forceful coughing and has now developed severe bilateral rib cage pains. at bedside reports he has been coughing so hard that he turns bright red in the face and has passed out, hit his nose/forehead on the wall. He denies fevers but reports diaphoresis and night sweats. He has been taking Tylenol PM and Nyquil to help him sleep. He reports shortness of breath while at rest, worse with any exertion, and states his breathing is limited secondary to the rib cage pain. Denies any orthopnea, weight gain, or lower extremity edema. Denies any cardiac history. He has been traveling recently for work, returned from [place] on January 18. He reports working a lot recently and has not been able to rest in order to fight the infection. He feels very warn down and fatigued. He does continue to smoke tobacco 1 PPD since he was a teenager, but never diagnosed with COPD/emphysema. The patient denies any other medical complaints including no chest pain, palpitations, nausea/vomiting, abdominal pain, or urinary complaints. 02/10: Seen in his bedroom in the presence of his , also discussed with nurse Miss Hebert, the patient has been coughing until he passed out yesterday night, relocation services specialist consult placed and because of probable Mucous Plug he was left NPO for probable Bronchoscopy if recommended by Specialist. continue present care. 02/11: Stable in his bedroom seen in the presence of his , no complaint, improving condition, consulted by relocation services specialist Doctor Fernando Steven continued present care No nausea, vomit or diarrhea. Objective Vital Signs Date Time Temp Pulse Resp B/P Pulse Ox O2 Delivery O2 Flow Rate FiO2 02/11/17 08:10 95 02/11/17 08:00 95.9 80 19 180/65 90 02/11/17 00:00 96.0 93 20 139/73 94 02/10/17 20:00 96.3 103 20 171/72 93 02/10/17 16:00 96.9 93 20 145/68 96 I/O 02/10/17 02/10/17 02/10/17 02/11/17 02/11/17 02/11/17 07:00 15:00 23:00 07:00 15:00 23:00 Intake Total 1817 ml 1253 ml 240 ml 1587 ml Output Total 800 ml 2400 ml 400 ml 2000 ml Balance 1017 ml -1147 ml -160 ml -413 ml Intake Oral 720 ml 240 ml 240 ml IV Total 1817 ml 533 ml 1347 ml Output Urine Total 800 ml 2400 ml 400 ml 2000 ml # Bowel Movements 0 0 0 Result Diagram: 02/11/17 0700 02/11/17 0700 Imaging Last Impressions Chest X-Ray 02/09/17 0514 Signed Impressions: Service Date/Time: Thursday, February 09, 2017 05:12 - CONCLUSION: No acute disease. Daren Guerra MD Head CT 02/09/17 0000 Signed Impressions: Service Date/Time: Thursday, February 09, 2017 07:01 - CONCLUSION: Unremarkable study. Grace Doe MD CT Angiography 02/09/17 0000 Signed Impressions: Service Date/Time: Thursday, February 09, 2017 07:06 - CONCLUSION: Probable mucous plugging in the left main bronchus, follow up is suggested with noncontrast chest CT in 6-8 weeks and if this density persists may consider bronchoscopy. Grace Doe MD Procedures None Other Results Laboratory Tests Test 02/09/17 02/09/17 02/09/17 02/10/17 05:17 06:04 09:08 09:51 Prothrombin Time 10.5 SEC Prothromb Time International 1.0 RATIO Ratio Activated Partial 25.9 SEC Thromboplast Time D-Dimer Quantitative (PE/DVT) 1.22 MG/L FEU Hemoglobin A1c 5.9 % Magnesium Level 2.2 MG/DL Total Creatine Kinase 147 U/L Creatine Kinase MB 1.8 NG/ML Troponin I LESS THAN 0.02 NG/ML B-Type Natriuretic Peptide 22 PG/ML Triglycerides Level 117 MG/DL Cholesterol Level 180 MG/DL LDL Cholesterol 117 MG/DL HDL Cholesterol 40.0 MG/DL Cholesterol/HDL Ratio 4.50 RATIO Thyroid Stimulating Hormone 1.980 uIU/ML 3rd Gen Blood Gas Liter Flow 3 L/M Urine Color YELLOW Urine Turbidity CLEAR Urine pH 5.5 Urine Specific [place] 1.031 Urine Protein TRACE mg/dL Urine Glucose (UA) NEG mg/dL Urine Ketones NEG mg/dL Urine Occult Blood NEG Urine Nitrite NEG Urine Bilirubin NEG Urine Urobilinogen LESS THAN 2.0 MG/DL Urine Leukocyte Esterase NEG Urine RBC LESS THAN 1 /hpf Urine WBC 1 /hpf Urine Mucus FEW /lpf Microscopic Urinalysis Comment CULT NOT INDICATED Lactic Acid Level 6.3 mmol/L Test 02/10/17 02/10/17 02/11/17 12:24 12:30 07:00 Blood Gas Puncture Site RT RADIAL Blood Gas Patient Temperature 98.6 Blood Gas HCO3 24 mmol/L Blood Gas Base Excess 0.8 mmol/L Blood Gas Oxygen Saturation 90 % Arterial Blood pH 7.48 Arterial Blood Partial 33 mmHg Pressure CO2 Arterial Blood Partial 61 mmHg Pressure O2 Arterial Blood Oxygen Content 17.3 Vol % Arterial Blood 1.2 % Carboxyhemoglobin Arterial Blood Methemoglobin 0.8 % Blood Gas Hemoglobin 13.8 G/DL Oxygen Delivery Device ROOM AIR Blood Gas Inspired Oxygen 21 % Nasal Screen MRSA (PCR) MRSA NOT DETECTED White Blood Count 31.9 TH/MM3 Red Blood Count 4.37 MIL/MM3 Hemoglobin 14.0 GM/DL Hematocrit 40.4 % Mean Corpuscular Volume 92.5 FL Mean Corpuscular Hemoglobin 32.1 PG Mean Corpuscular Hemoglobin 34.7 % Concent Red Cell Distribution Width 13.2 % Platelet Count 261 TH/MM3 Mean Platelet Volume 8.1 FL Neutrophils (%) (Auto) 94.7 % Lymphocytes (%) (Auto) 2.4 % Monocytes (%) (Auto) 2.8 % Eosinophils (%) (Auto) 0.0 % Basophils (%) (Auto) 0.1 % Neutrophils # (Auto) 30.2 TH/MM3 Lymphocytes # (Auto) 0.8 TH/MM3 Monocytes # (Auto) 0.9 TH/MM3 Eosinophils # (Auto) 0.0 TH/MM3 Basophils # (Auto) 0.0 TH/MM3 CBC Comment AUTO DIFF Differential Total Cells 100 Counted Neutrophils % (Manual) 93 % Lymphocytes % 4 % Monocytes % 3 % Neutrophils # (Manual) 29.7 TH/MM3 Differential Comment FINAL DIFF MANUAL Platelet Estimate NORMAL Platelet Morphology Comment NORMAL Red Cell Morphology Comment NORMAL Sodium Level 140 MEQ/L Potassium Level 4.1 MEQ/L Chloride Level 105 MEQ/L Carbon Dioxide Level 25.7 MEQ/L Anion Gap 9 MEQ/L Blood Urea Nitrogen 18 MG/DL Creatinine 0.91 MG/DL Estimat Glomerular Filtration 84 ML/MIN Rate Random Glucose 109 MG/DL Calcium Level 9.2 MG/DL Objective Remarks GENERAL: Well-developed pleasant male patient in NAD. SKIN: Warm and dry. No rash. Slightly diaphoretic. HEAD: Normocephalic. Atraumatic. EYES: Pupils equal and round. No scleral icterus. No injection or drainage. ENT: No nasal bleeding or discharge. Mucous membranes pink and moist. NECK: Supple. Trachea midline. CARDIOVASCULAR: Regular rate and rhythm. S1, S2 noted. No murmur appreciated. RESPIRATORY: Decreased breath sound bilateral, increased AP diameter of thorax, no wheezing or crackles. GASTROINTESTINAL: Abdomen soft, non-tender, nondistended. Normoactive bowel sounds x4. MUSCULOSKELETAL: No obvious deformities. Extremities without clubbing, cyanosis , or edema. NEUROLOGICAL: Awake and alert. No obvious cranial nerve deficits. Motor grossly within normal limits. Normal speech. PSYCHIATRIC: Appropriate mood and affect; insight and judgment normal. Medications and IVs Current Medications Medications (Trade) Dose Ordered Sig/Laly Route Start Time Stop Time Status Last Admin (NS 1000 ml Inj) 1,000 ml @ 100 mls/hr Q10H IV 02/09/17 08:24 02/11/17 09:41 (NS Flush) 2 ml UNSCH PRN IV FLUSH 02/09/17 08:30 (NS Flush) 2 ml BID IV FLUSH 02/09/17 09:00 02/11/17 08:20 (Tylenol) 650 mg Q4H PRN PO 02/09/17 08:30 (Zofran Inj) 4 mg Q6H PRN IVP 02/09/17 08:30 (Lovenox Inj) 40 mg Q24H SQ 02/09/17 10:00 02/11/17 09:40 (Narcan Inj) 0.4 mg UNSCH PRN IV 02/09/17 08:30 (Breana-Colace) 1 tab BID PO 02/09/17 09:00 02/11/17 08:19 (Milk Of Magnesia Liq) 30 ml Q12H PRN PO 02/09/17 08:30 (Senokot) 17.2 mg Q12H PRN PO 02/09/17 08:30 (Dulcolax Supp) 10 mg DAILY PRN RECTAL 02/09/17 08:30 Lactulose 30 ml 30 ml DAILY PRN PO 02/09/17 08:30 (Maxipime Inj/NS Inj) 100 ml @ 200 mls/hr Q12H IV 02/09/17 10:00 02/11/17 08:19 (Mucinex Er) 600 mg BID PO 02/09/17 10:00 02/11/17 08:19 (SoluMEDROL INJ) 40 mg Q6H IV PUSH 02/09/17 11:00 02/11/17 09:41 (Tessalon) 200 mg Q8H PRN PO 02/09/17 11:30 (Motrin) 400 mg Q6H PRN PO 02/09/17 11:30 (Sumner 5-325 Mg) 1 tab Q4H PRN PO 02/09/17 11:30 02/09/17 21:35 (Sumner 7.5-325 Mg) 1 tab Q4H PRN PO 02/09/17 11:30 02/11/17 09:41 Nicotine 1 patch 1 patch DAILY PRN T-DERMAL 02/09/17 11:30 (Levaquin 750 Mg Premix Inj) 150 ml @ 100 mls/hr Q24H IV 02/10/17 12:00 02/10/17 12:40 A/P Assessment and Plan 66-year-old male with past medical history of arthritis, tobacco use, and recent bronchitis, presents with a 3 week history of worsening cough and shortness of breath. Sepsis with Bronchitis, Failed Outpatient Treatment with 10day course of Amoxicillin. Meets sepsis criteria with WBC 16.4K, tachycardia HR 102, tachypnea RR 30. Lactic acid 1.6. ABG reviewed and unremarkable. UA negative. CXR images reviewed, no acute findings. D-dimer elevated 1.22. CT-PA images reviewed, shows mucous plug left main bronchus, recommends f/up with noncontrast CT in 6-8 weeks; if density persists, may consider bronchoscopy. Leukocytosis worsening probable related to Steroid use IV versus Infectious basal pathology, asked for new Lactic Acid level. after seen by on site services specialist recommended to follow in six weeks as outpatient. -Continue antibiotics with IV Cefepime, added Levaquin due to that the patient had elevated Lactic acid with Leukocytosis. -sputum culture, blood cultures negative in 48 hours. , urine legionella/ pneumococcal antigen Negative. -Discontinue IV fluids. continue Bronchodilator, Mucolytic, Incentive spirometry. Steroids. Evident COPD/Emphysema exacerbation. with increased anteroposterior diameter of the thorax, secondary to Severe tobacco dependence he uses an inhaler Pro-air without improvement. continue bronchodilator, Mucolytic and Incentive spirometry, Steroids. Tobacco Use: smokes 1 PPD for ~50years. -Counseled on cessation -will provide nicotine patch prn DVT Prophylaxis: Lovenox Code Status Full Code Discussed Condition With Discussed with Patient and his in the room, all questions answered to the best of my abilities Discharge Planning Not yet cleared for discharge. Hernandez Gaviria MD Feb 11, 2017 12:09
--- NOTE | 2017-02-11 19:34 | HHI.PR ---
Subjective Remarks 66 YOWM with COPD, Mucous plugging Coughing up lot of sp no fever WBC increased 31K No abd pain or diarrhoea Objective Vital Signs Vital Signs Date Time Temp Pulse Resp B/P Pulse Ox O2 Delivery O2 Flow Rate FiO2 02/11/17 16:00 95.7 89 18 137/65 94 02/11/17 12:00 96.7 89 18 150/70 92 02/11/17 08:10 95 02/11/17 08:00 95.9 80 19 180/65 90 02/11/17 00:00 96.0 93 20 139/73 94 02/10/17 20:00 96.3 103 20 171/72 93 I/O 02/10/17 02/10/17 02/10/17 02/11/17 02/11/17 02/11/17 07:00 15:00 23:00 07:00 15:00 23:00 Intake Total 1817 ml 1253 ml 240 ml 1587 ml 1300 ml Output Total 800 ml 2400 ml 400 ml 2000 ml 500 ml Balance 1017 ml -1147 ml -160 ml -413 ml 800 ml Intake Oral 720 ml 240 ml 240 ml 1300 ml IV Total 1817 ml 533 ml 1347 ml Output Urine Total 800 ml 2400 ml 400 ml 2000 ml 500 ml # Voids 2 # Bowel Movements 0 0 0 0 Result Diagram: 02/11/17 0702/11/17 07 Objective Remarks GENERAL:WBWN WM,NAD SKIN: Warm and dry. HEAD: Normocephalic. EYES: No scleral icterus. No injection or drainage. NECK: Supple, trachea midline. No JVD or lymphadenopathy. CARDIOVASCULAR: Regular rate and rhythm without murmurs, gallops, or rubs. RESPIRATORY: Breath sounds equal bilaterally. No accessory muscle use. GASTROINTESTINAL: Abdomen soft, non-tender, nondistended. MUSCULOSKELETAL: No cyanosis, or edema. BACK: Nontender without obvious deformity. No CVA tenderness. A/P Assessment and Plan COPD exac improving Mucous plugging Leucocytosis nicotine use PLAN: DW Pt and Cont Abx Decrease Solumedrol 40 mg q 12 hrs Aerosol nebs monitor CBC Will need rpt CT chest 4-6 weeks. Fernando Steven MD Feb 11, 2017 19:34
[2017-02-12] VITALS (8 sets, daily range): BP systolic 128–170; BP diastolic 69–86; PULSE 73–90; RESP 18–19; TEMP 96.4–96.8; O2SAT 94–96
[2017-02-12] MEDS: RESP: ALBUTEROL 2.5 MG/IPRATROPIUM 0.5 MG NEB (SCH) NEB ×6 (03:03→21:49)
[2017-02-12] MEDS: DOCUSATE SODIUM 50 MG/SENNA 8.6 MG TAB PO SCH ×2 (09:00→20:45)
[2017-02-12] MEDS: SODIUM CHLORIDE 0.9% FLUSH 10 ML FLUSH IV FLUSH SCH ×2 (09:00→20:45)
[2017-02-12] MEDS: guaiFENesin E.R. 600 MG TAB PO SCH ×2 (09:00→20:45)
[2017-02-12] MEDS: CEFEPIME INJ 2,000 MG in SODIUM CHLORIDE 0.9% INJ 100 ML IV SCH ×2 (09:56→22:00)
[2017-02-12] MEDS: ENOXAPARIN SODIUM 40 MG/0.4 ML SYRINGE SQ SCH (09:56)
[2017-02-12] MEDS: methylPREDNISolone SOD SUCC 40 MG/1 ML VIAL IV PUSH SCH ×2 (11:00→20:46)
[2017-02-12] MEDS: LEVOFLOXACIN 750 MG PREMIX INJ 150 ML IV SCH (11:01)
[2017-02-12] MEDS: ACETAMINOPHEN/HYDROcodone 325 MG/7.5 MG TAB PO PRN ×2 (11:06→20:46)
--- NOTE | 2017-02-12 15:01 | HHI.PR ---
Subjective Remarks Follow up for cough, shortness of breath, left main bronchus mucus plug. Patient is currently doing well on 2L of O2 via NC. No fever, chills. Objective Vitals Vital Signs Date Time Temp Pulse Resp B/P Pulse Ox O2 Delivery O2 Flow Rate FiO2 02/12/17 12:06 18 02/12/17 12:00 96.5 73 18 158/77 96 02/12/17 08:50 82 02/12/17 08:00 96.8 78 19 140/73 94 02/12/17 07:37 94 Nasal Cannula 3.00 02/12/17 03:13 95 Nasal Cannula 3.00 02/11/17 22:00 73 02/11/17 20:00 96.0 77 21 156/81 94 02/11/17 16:00 95.7 89 18 137/65 94 I/O 02/11/17 02/11/17 02/11/17 02/12/17 02/12/17 02/12/17 07:00 15:00 23:00 07:00 15:00 23:00 Intake Total 1587 ml 1300 ml 360 ml 360 ml 1000 ml Output Total 2000 ml 500 ml 300 ml 1200 ml 900 ml Balance -413 ml 800 ml 60 ml -840 ml 100 ml Intake Oral 240 ml 1300 ml 360 ml 360 ml 1000 ml IV Total 1347 ml 0 ml 0 ml Output Urine Total 2000 ml 500 ml 300 ml 1200 ml 900 ml # Voids 2 # Bowel Movements 0 0 0 0 1 Result Diagram: 02/11/17 0700 02/11/17 07 Imaging Last Impressions Chest X-Ray 02/09/17 0514 Signed Impressions: Service Date/Time: Thursday, February 09, 2017 05:12 - CONCLUSION: No acute disease. Daren Guerra MD Head CT 02/09/17 0000 Signed Impressions: Service Date/Time: Thursday, February 09, 2017 07:01 - CONCLUSION: Unremarkable study. Grace Doe MD CT Angiography 02/09/17 0000 Signed Impressions: Service Date/Time: Thursday, February 09, 2017 07:06 - CONCLUSION: Probable mucous plugging in the left main bronchus, follow up is suggested with noncontrast chest CT in 6-8 weeks and if this density persists may consider bronchoscopy. Grace Doe MD Objective Remarks GENERAL: Alert, NAD. SKIN: Warm and dry. HEAD: Normocephalic. EYES: No scleral icterus. No injection or drainage. NECK: Supple, trachea midline. No JVD or lymphadenopathy. CARDIOVASCULAR: Regular rate and rhythm without murmurs, gallops, or rubs. RESPIRATORY: Breath sounds equal bilaterally. No accessory muscle use. GASTROINTESTINAL: Abdomen soft, non-tender, nondistended. MUSCULOSKELETAL: No cyanosis, or edema. BACK: Nontender without obvious deformity. No CVA tenderness. A/P Problem List: (1) Sepsis ICD Code: A41.9 Status: Acute (2) Pneumonia ICD Code: J18.9 Status: Acute (3) Failure of outpatient treatment ICD Code: Z78.9 Status: Acute Assessment and Plan 66-year-old male with past medical history of arthritis, tobacco use, and recent bronchitis, presents with a 3 week history of worsening cough and shortness of breath. Sepsis with Bronchitis, Failed Outpatient Treatment with 10day course of Amoxicillin. Meets sepsis criteria with WBC 16.4K, tachycardia HR 102, tachypnea RR 30. Lactic acid 1.6. ABG reviewed and unremarkable. UA negative. CXR images reviewed, no acute findings. D-dimer elevated 1.22. CT-PA images reviewed, shows mucous plug left main bronchus, recommends f/up with noncontrast CT in 6-8 weeks; if density persists, may consider bronchoscopy. Leukocytosis worsening probable related to Steroid use IV versus Infectious basal pathology, asked for new Lactic Acid level. after seen by sharepoint specialist recommended to follow in six weeks as outpatient. -Continue antibiotics with IV Cefepime, added Levaquin due to that the patient had elevated Lactic acid with Leukocytosis. -sputum culture, blood cultures negative in 48 hours. , urine legionella/ pneumococcal antigen Negative. -Discontinue IV fluids. continue Bronchodilator, Mucolytic, Incentive spirometry. Steroids. - CBC in the AM. If improved, we could potentially discharge patient home on Oral abx and follow up with Dr. Steven as well as CT chest in 3-4 weeks. Evident COPD/Emphysema exacerbation. with increased anteroposterior diameter of the thorax, secondary to Severe tobacco dependence he uses an inhaler Pro-air without improvement. continue bronchodilator, Mucolytic and Incentive spirometry, Steroids. Tobacco Use: smokes 1 PPD for ~50years. -Counseled on cessation -will provide nicotine patch prn DVT Prophylaxis: Lovenox Problem Qualifiers (1) Sepsis: Qualified Code: A41.9 - Sepsis, due to unspecified organism (2) Pneumonia: Qualified Code: J18.1 - Pneumonia of left lower lobe due to infectious organism Ania Do DO Feb 12, 2017 15:01
[2017-02-12] MEDS ORDERED: guaiFENesin/CODEINE SYRUP 200 MG/20 MG/10 ML CUP PO PRN (16:00)
--- NOTE | 2017-02-12 18:10 | HHI.PR ---
Subjective Remarks 66 YOWM with COPD, Mucous plugging Coughing up lot of sp no fever WBC increased 31K No abd pain or diarrhoea Ambulates Anxious to go home Objective Vital Signs Vital Signs Date Time Temp Pulse Resp B/P Pulse Ox O2 Delivery O2 Flow Rate FiO2 02/12/17 17:01 94 21 02/12/17 16:00 96.4 82 18 170/86 95 02/12/17 12:06 18 02/12/17 12:00 96.5 73 18 158/77 96 02/12/17 08:50 82 02/12/17 08:00 96.8 78 19 140/73 94 02/12/17 07:37 94 Nasal Cannula 3.00 02/12/17 03:13 95 Nasal Cannula 3.00 02/11/17 22:00 73 02/11/17 20:00 96.0 77 21 156/81 94 I/O 02/11/17 02/11/17 02/11/17 02/12/17 02/12/17 02/12/17 07:00 15:00 23:00 07:00 15:00 23:00 Intake Total 1587 ml 1300 ml 360 ml 360 ml 1000 ml Output Total 2000 ml 500 ml 300 ml 1200 ml 900 ml Balance -413 ml 800 ml 60 ml -840 ml 100 ml Intake Oral 240 ml 1300 ml 360 ml 360 ml 1000 ml IV Total 1347 ml 0 ml 0 ml Output Urine Total 2000 ml 500 ml 300 ml 1200 ml 900 ml # Voids 2 # Bowel Movements 0 0 0 0 1 Result Diagram: 02/11/17 0702/11/17 07 Objective Remarks GENERAL:WBWN WM,NAD SKIN: Warm and dry. HEAD: Normocephalic. EYES: No scleral icterus. No injection or drainage. NECK: Supple, trachea midline. No JVD or lymphadenopathy. CARDIOVASCULAR: Regular rate and rhythm without murmurs, gallops, or rubs. RESPIRATORY: Breath sounds equal bilaterally. No accessory muscle use. GASTROINTESTINAL: Abdomen soft, non-tender, nondistended. MUSCULOSKELETAL: No cyanosis, or edema. BACK: Nontender without obvious deformity. No CVA tenderness. A/P Assessment and Plan COPD exac improving Mucous plugging Leucocytosis nicotine use PLAN: DW Pt and Cont Abx Decrease Solumedrol 40 mg q 12 hrs Aerosol nebs CBC in AM If leucocytosis trending down, will switch to po ABX Will need rpt CT chest 4-6 weeks. Fernando Steven MD Feb 12, 2017 18:10
[2017-02-13] MEDS: RESP: ALBUTEROL 2.5 MG/IPRATROPIUM 0.5 MG NEB (SCH) NEB ×4 (00:07→12:25)
[2017-02-13 05:56] LABS: AUTOMATED NEUTROPHIL # 17.2 TH/MM3 (1.8-7.7); BASOPHIL # 0.1 TH/MM3 (0-0.2); BASOPHIL % 0.3 % (0.0-2.0); HEMATOCRIT 40.5 % (39.0-51.0); HEMO FLAGS DIFF FINAL; LYMPH % 3.2 % (9.0-44.0); LYMPHOCYTE # 0.6 TH/MM3 (1.0-4.8); MEAN CELL VOLUME 92.4 FL (80.0-100.0); MEAN CORPUSCULAR HEMOGLOBIN 31.3 PG (27.0-34.0); MEAN CORPUSCULAR HGB CONC 33.9 % (32.0-36.0); MONO % 5.7 % (0.0-8.0); NEUT % 90.8 % (16.0-70.0); PLATELET COUNT 244 TH/MM3 (150-450); RED BLOOD COUNT 4.39 MIL/MM3 (4.50-5.90); RED CELL DISTRIBUTION WIDTH 13.4 % (11.6-17.2); WHITE BLOOD COUNT 18.9 TH/MM3 (4.0-11.0)
[2017-02-13 06:07] LABS: BICARBONATE 27.9 MEQ/L (21.0-32.0); POTASSIUM 3.7 MEQ/L (3.5-5.1)
[2017-02-13 07:46] VITALS: O2SAT 95
[2017-02-13] MEDS: DOCUSATE SODIUM 50 MG/SENNA 8.6 MG TAB PO SCH (07:50)
[2017-02-13] MEDS: ENOXAPARIN SODIUM 40 MG/0.4 ML SYRINGE SQ SCH (07:50)
[2017-02-13] MEDS: guaiFENesin E.R. 600 MG TAB PO SCH (07:50)
[2017-02-13] MEDS: CEFEPIME INJ 2,000 MG in SODIUM CHLORIDE 0.9% INJ 100 ML IV SCH (07:51)
[2017-02-13] MEDS: SODIUM CHLORIDE 0.9% FLUSH 10 ML FLUSH IV FLUSH SCH (07:51)
[2017-02-13 08:00] VITALS: BP 147/77; PULSE 87; RESP 18; TEMP 97; O2SAT 91
[2017-02-13] MEDS: methylPREDNISolone SOD SUCC 40 MG/1 ML VIAL IV PUSH SCH (11:20)
[2017-02-13] MEDS: LEVOFLOXACIN 750 MG PREMIX INJ 150 ML IV SCH (11:20)
[2017-02-13 12:00] VITALS: BP 168/87; PULSE 68; RESP 18; TEMP 97.3; O2SAT 95
[2017-02-13] MEDS ORDERED: HYDR-3516 PO (12:51)
[2017-02-13] MEDS ORDERED: VENTAER INH (12:51)
[2017-02-13] MEDS ORDERED: GUAISYP4 PO (12:51)
[2017-02-13] MEDS ORDERED: PRED10 PO (12:51)
[2017-02-13] MEDS ORDERED: LEVO750T3 PO (12:51)
[2017-02-13] MEDS ORDERED: SYMB160A INH (12:51)
--- NOTE | 2017-02-13 12:52 | HHI.DS ---
Discharge Summary Admission Date Feb 09, 2017 at 8:25 am Discharge Date: Feb 13, 2017 Admitting Diagnosis sepsis; bronchitis; exacerbation copd (1) Sepsis ICD Code: A41.9 (2) Pneumonia ICD Code: J18.9 (3) Failure of outpatient treatment ICD Code: Z78.9 Procedures None. Brief History - From Admission 66-year-old male with past medical history of arthritis, tobacco use, and recent bronchitis, presents with a 3 week history of worsening cough and shortness of breath. The patient reports he started with nonproductive cough and congestion 3 weeks ago, saw urgent care 2 weeks ago, prescribed amoxicillin [id number] for bronchitis, completed treatment yesterday. He states he continues to worsen. He reports now productive cough with yellow-green sputum. He reports intractable forceful coughing and has now developed severe bilateral rib cage pains. at bedside reports he has been coughing so hard that he turns bright red in the face and has passed out, hit his nose/forehead on the wall. He denies fevers but reports diaphoresis and night sweats. He has been taking Tylenol PM and Nyquil to help him sleep. He reports shortness of breath while at rest, worse with any exertion, and states his breathing is limited secondary to the rib cage pain. Denies any orthopnea, weight gain, or lower extremity edema. Denies any cardiac history. He has been traveling recently for work, returned from [place] on January 18. He reports working a lot recently and has not been able to rest in order to fight the infection. He feels very warn down and fatigued. He does continue to smoke tobacco 1 PPD since he was a teenager, but never diagnosed with COPD/emphysema. The patient denies any other medical complaints including no chest pain, palpitations, nausea/vomiting, abdominal pain, or urinary complaints. CBC/BMP: 02/13/17 0512 02/13/17 0512 Significant Findings Laboratory Tests Test 02/11/17 02/13/17 07:00 05:12 White Blood Count 31.9 TH/MM3 18.9 TH/MM3 (4.0-11.0) (4.0-11.0) Red Blood Count 4.37 MIL/MM3 4.39 MIL/MM3 (4.50-5.90) (4.50-5.90) Neutrophils (%) (Auto) 94.7 % 90.8 % (16.0-70.0) (16.0-70.0) Lymphocytes (%) (Auto) 2.4 % 3.2 % (9.0-44.0) (9.0-44.0) Neutrophils # (Auto) 30.2 TH/MM3 17.2 TH/MM3 (1.8-7.7) (1.8-7.7) Lymphocytes # (Auto) 0.8 TH/MM3 0.6 TH/MM3 (1.0-4.8) (1.0-4.8) Neutrophils % (Manual) 93 % (16-70) Lymphocytes % 4 % (9-44) Neutrophils # (Manual) 29.7 TH/MM3 (1.8-7.7) Estimat Glomerular Filtration 84 ML/MIN (>89) 80 ML/MIN (>89) Rate Random Glucose 109 MG/DL 108 MG/DL (74-106) (74-106) Monocytes # (Auto) 1.1 TH/MM3 (0-0.9) Blood Urea Nitrogen 24 MG/DL (7-18) Imaging Last Impressions Chest X-Ray 02/09/17 0514 Signed Impressions: Service Date/Time: Thursday, February 09, 2017 05:12 - CONCLUSION: No acute disease. Daren Guerra MD Head CT 02/09/17 0000 Signed Impressions: Service Date/Time: Thursday, February 09, 2017 07:01 - CONCLUSION: Unremarkable study. Grace Doe MD CT Angiography 02/09/17 0000 Signed Impressions: Service Date/Time: Thursday, February 09, 2017 07:06 - CONCLUSION: Probable mucous plugging in the left main bronchus, follow up is suggested with noncontrast chest CT in 6-8 weeks and if this density persists may consider bronchoscopy. Grace Doe MD PE at Discharge GENERAL: Alert, NAD. SKIN: Warm and dry. HEAD: Normocephalic. EYES: No scleral icterus. No injection or drainage. NECK: Supple, trachea midline. No JVD or lymphadenopathy. CARDIOVASCULAR: Regular rate and rhythm without murmurs, gallops, or rubs. RESPIRATORY: Breath sounds equal bilaterally. No accessory muscle use. GASTROINTESTINAL: Abdomen soft, non-tender, nondistended. MUSCULOSKELETAL: No cyanosis, or edema. BACK: Nontender without obvious deformity. No CVA tenderness. Pt update on day of discharge Mr. Gil is doing well. No fever, chills. Doing well on room air. Hospital Course 66-year-old male with past medical history of arthritis, tobacco use, and recent bronchitis, presents with a 3 week history of worsening cough and shortness of breath. Sepsis with Bronchitis, Failed Outpatient Treatment with 10day course of Amoxicillin. Meets sepsis criteria with WBC 16.4K, tachycardia HR 102, tachypnea RR 30. Lactic acid 1.6. ABG reviewed and unremarkable. UA negative. CXR images reviewed, no acute findings. D-dimer elevated 1.22. CT-PA images reviewed, shows mucous plug left main bronchus, recommends f/up with noncontrast CT in 6-8 weeks; if density persists, may consider bronchoscopy. Leukocytosis worsening probable related to Steroid use IV versus Infectious basal pathology, asked for new Lactic Acid level. 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 - Switched to PO Levaquin. Patient remains afebrile. - sputum culture, blood cultures negative in 48 hours. , urine legionella/ pneumococcal antigen Negative. - Discontinue IV fluids. continue Bronchodilator, Mucolytic, Incentive spirometry. Steroids. - CBC is improved, WBC trending down. Will discharge patient home on Oral abx and follow up with Dr. Steven as well as CT chest in 4-6 weeks. Evident COPD/Emphysema exacerbation. with increased anteroposterior diameter of the thorax, secondary to Severe tobacco dependence he uses an inhaler Pro-air without improvement. continue bronchodilator, Mucolytic and Incentive spirometry, Steroids. Tobacco Use: smokes 1 PPD for ~50years. -Counseled on cessation -will provide nicotine patch prn DVT Prophylaxis: Lovenox Pt Condition on Discharge: Good Discharge Disposition: Disch w/ Home Health Serv Discharge Time: > 30 minutes Discharge Instructions DIET: Follow Instructions for: Heart Healthy Diet Activities you can perform: Regular-No Restrictions Follow up Referrals: PCP Follow-up - 1 Week Pulmonology - 2 Weeks New Orders: CT THORAX W/O CONTRAST (CHEST) - 6 Weeks New Medications: Albuterol 18 GM Inh (Ventolin Hfa 18 GM Inh) 90 Mcg/Act Aer 2 PUFF INH Q4-6H PRN SHORTNESS OF BREATH #1 Ref 0 INHALER Amlodipine (Amlodipine) 5 Mg Tab 5 MG PO DAILY Blood Pressure Management #30 Ref 0 TAB Budesonide-Formoterol Inh (Symbicort Inh) 160-4.5 Mcg/Act Aero 1 PUFF INH Q12HR #1 Ref 0 INHALER Guaifenesin-Codeine Liq (Guaifenesin AC Liq) 100-10 Mg/5 Ml Syrp 10 ML PO Q6H PRN COUGH #1 Ref 0 BOTTLE Levofloxacin (Levofloxacin) 750 Mg Tablet 750 MG PO DAILY Infection #7 Ref 0 TAB Prednisone (Prednisone) 10 Mg Tab 10 MG PO BID Inflammation #10 Ref 0 TAB Hydrocodone-Acetaminophen (Hydrocodone-Acetaminophen) 5-325 mg Tab 1 TAB PO Q4H PRN PAIN SCALE 4 TO 10 #20 TAB Ania Do DO Feb 13, 2017 12:52
[2017-02-13] MEDS ORDERED: AMLO5TAB2 PO (12:53)
== END 2017-02-13 13:59 | disposition home or self-care (01) | DRG 871 ==
LOC: NEPC 05:12 → NEDA 08:25 → N07A 11:20
PROVIDERS: ADMIT Hospitalist; ATTEND Hospitalist
DX: A41.9 Sepsis, unspecified organism (principal); J18.9 Pneumonia, unspecified organism; J44.0 Chronic obstructive pulmonary disease with (acute) lower respiratory infection; J44.1 Chronic obstructive pulmonary disease with (acute) exacerbation; J40 Bronchitis, not specified as acute or chronic; F17.210 Nicotine dependence, cigarettes, uncomplicated; M19.90 Unspecified osteoarthritis, unspecified site; J98.09 Other diseases of bronchus, not elsewhere classified; H91.90 Unspecified hearing loss, unspecified ear
CPT/HCPCS: 36600; 70450; 71010; 71275; 80048; 80061; 81001; 82550; 82552; 82805; 83036; 83605; 83735; 83880; 84443; 84484; 85007; 85025; 85027; 85379; 85610; 85730; 87040; 87070; 87205; 87449; 87641; 93005; 94150; 94640; 94664; 94667; 96365; 96367; 96375; J0456; J0692; J0696; J1650; J1956; J2920; J2930; J7030; J7050; Q9967